=== PATIENT | male | born 1975 | race American Indian/Alaskan Native ===

== ENCOUNTER 2022-02-04 05:13 | Emergency (ER) | payer MEDICAID ==
[2022-02-04] MEDS ORDERED: ALUM-MAG HYDROXIDE-SIMETHICONE 200-200-20MG/5ML ORAL LIQD 30 ML PO ONE (08:48)
[2022-02-04] MEDS ORDERED: FAMOTIDINE 20 MG TAB PO ONE (08:48)
[2022-02-04] MEDS ORDERED: LIDOCAINE VISCOUS 2% 15 ML ORAL LIQD PO ONE (08:48)
[2022-02-04 09:29] LABS: Hematocrit 48.9 % (35.5-45.6); Hemoglobin 16.1 gm/dl (11.8-15.2); Mean Corpuscular HGB Conc 33 % (32-34); Mean Corpuscular Volume 82 fl (84-94); Platelet Count 193 K/mm3 (140-440); Red Blood Count 5.93 M/mm3 (3.65-5.03); Red Cell Distribution Width 13.9 % (13.2-15.2)
[2022-02-04] MEDS ORDERED: PANTOPRAZOLE 40 MG INJ IV ONE (09:32)
[2022-02-04] MEDS ORDERED: SODIUM CHLORIDE 0.9% 1000 ML 1,000 ML IV ONE (09:32)
[2022-02-04 09:53] LABS: Alanine Aminotransferase 15 units/L (7-56); Albumin 4.3 g/dL (3.9-5); Blood Urea Nitrogen 12 mg/dL (9-20); Calcium 9.6 mg/dL (8.4-10.2); Hemolysis Index 4
[2022-02-04 09:57] LABS: Calcium Oxalate Crystals,Urine FEW
[2022-02-04 09:58] LABS: Bacteria,Urine 1+ /HPF (Negative); Mucus,Urine FEW /HPF
[2022-02-04 10:02] LABS: Color,Urine Yellow (Yellow)
[2022-02-04 10:03] LABS: Bilirubin,Urine Negative (Negative); Blood,Urine Negative (Negative)
[2022-02-04 10:08] LABS: BUN/Creatinine Ratio 17
[2022-02-04] MEDS ORDERED: cefTRIAXone/NS 1 GM/50 ML 1 GM/50 ML BAG IV ONE (10:16)
[2022-02-04] MEDS ORDERED: INSULIN REGULAR, HUMAN 100 UNITS/1 ML IV ONE (10:16)
--- NOTE | 2022-02-04 10:45 | Emergency Department Report ---
ED Abdominal Pain HPI - General Chief Complaint: Abdominal Pain Stated Complaint: CHEST AND STOMACH PAIN PUI?: No Time Seen by Provider: 02/04/22 07:58 Source: patient Mode of arrival: Ambulatory Limitations: No Limitations - History of Present Illness Initial Comments: Patient is a 46-year-old male that comes to the emergency room with epigastric pain off and on for 2 months. He is diabetic and on insulin and metformin. He states that the pain is worse when he eats. And he experiences some fullness. He denies any nausea vomiting or diarrhea. He does endorse intermittent constipation. Patient is ambulatory, not ill nontoxic on arrival to ER. MD Complaint: abdominal pain -: Gradual, week(s) Location: epigastric Radiation: none Severity: mild Severity scale (0 -10): 4 Quality: cramping Consistency: intermittent Improves With: nothing Worsens With: eating - Related Data Previous Rx's Medication Instructions Recorded Last Taken Type Pantoprazole [Protonix] 40 mg PO QDAY #30 tablet 02/04/22 Unknown Rx Sulfamethoxazole/Trimethoprim 1 each PO BID #10 tablet 02/04/22 Unknown Rx [Bactrim DS TAB] Allergies Allergy/AdvReac Type Severity Reaction Status Date / Time No Known Allergies Allergy Verified 02/04/22 05:44 ED Review of Systems ROS: Stated complaint: CHEST AND STOMACH PAIN Other details as noted in HPI Comment: All other systems reviewed and negative ED Past Medical Hx - Past Medical History Previous Medical History?: Yes Hx Diabetes: Yes - Surgical History Past Surgical History?: Yes - Family History Family history: no significant - Social History Smoking Status: Never Smoker Substance Use Type: None - Medications Home Medications: Home Medications Medication Instructions Recorded Confirmed Last Taken Type Pantoprazole [Protonix] 40 mg PO QDAY #30 tablet 02/04/22 Unknown Rx Sulfamethoxazole/Trimethoprim 1 each PO BID #10 tablet 02/04/22 Unknown Rx [Bactrim DS TAB] ED Physical Exam - General Limitations: No Limitations General appearance: alert, in no apparent distress - Head Head exam: Present: atraumatic, normocephalic - Eye Eye exam: Present: normal appearance - ENT ENT exam: Present: mucous membranes moist - Neck Neck exam: Present: normal inspection - Respiratory Respiratory exam: Present: normal lung sounds bilaterally. Absent: respiratory distress - Cardiovascular Cardiovascular Exam: Present: regular rate, normal rhythm. Absent: systolic murmur, diastolic murmur, rubs, gallop - GI/Abdominal GI/Abdominal exam: Present: soft, tenderness (Over the epigastrium) - Rectal Rectal exam: Present: deferred - Extremities Exam Extremities exam: Present: normal inspection - Back Exam Back exam: Present: normal inspection - Neurological Exam Neurological exam: Present: alert, oriented X3 - Psychiatric Psychiatric exam: Present: normal affect, normal mood - Skin Skin exam: Present: warm, dry, intact, normal color. Absent: rash ED Course Vital Signs 02/04/22 02/04/22 05:34 13:47 Temperature 98.3 F 97.8 F Pulse Rate 88 78 Respiratory 18 16 Rate Blood Pressure 142/78 Blood Pressure 153/88 [Left] O2 Sat by Pulse 100 100 Oximetry ED Medical Decision Making - Lab Data Result diagrams: 02/04/22 08:51 02/04/22 08:51 - Medical Decision Making Vital Signs 02/04/22 05:34 Temperature 98.3 F Pulse Rate 88 Respiratory 18 Rate Blood Pressure 142/78 O2 Sat by Pulse 100 Oximetry Lab Results 02/04/22 02/04/22 02/04/22 Range/Units 08:51 08:51 09:12 WBC 5.6 (4.5-11.0) K/mm3 RBC 5.93 H (3.65-5.03) M/mm3 Hgb 16.1 H (11.8-15.2) gm/dl Hct 48.9 H (35.5-45.6) % MCV 82 L (84-94) fl MCH 27 L (28-32) pg MCHC 33 (32-34) % RDW 13.9 (13.2-15.2) % Plt Count 193 (140-440) K/mm3 Sodium 136 L (137-145) mmol/L Potassium 4.2 (3.6-5.0) mmol/L Chloride 99.5 (98-107) mmol/L Carbon Dioxide 24 (22-30) mmol/L Anion Gap 17 mmol/L BUN 12 (9-20) mg/dL Creatinine 0.7 L (0.8-1.3) mg/dL Estimated GFR > 60 ml/min BUN/Creatinine Ratio 17 % Glucose 356 H (75-100) mg/dL Ketones Quantitative Negative (Negative) Calcium 9.6 (8.4-10.2) mg/dL Total Bilirubin 1.40 H (0.1-1.2) mg/dL AST 12 (5-40) units/L ALT 15 (7-56) units/L Alkaline Phosphatase 80 (35-129) units/L Total Protein 7.0 (6.3-8.2) g/dL Albumin 4.3 (3.9-5) g/dL Albumin/Globulin Ratio 1.6 % Lipase 20 (13-60) units/L Urine Color Yellow (Yellow) Urine Turbidity Clear (Clear) Urine pH 5.0 (5.0-7.0) Ur Specific [place] 1.030 (1.003-1.030) Urine Protein 30 mg/dl (Negative) mg/dL Urine Glucose (UA) Negative (Negative) mg/dL Urine Ketones 3+ (Negative) mg/dL Urine Blood Negative (Negative) Urine Nitrite Negative (Negative) Ur Reducing Substances Not Reportable Urine Bilirubin Negative (Negative) Urine Ictotest Not Reportable Urine Urobilinogen 0.0 (<2.0) mg/dL Ur Leukocyte Esterase Negative (Negative) Urine WBC (Auto) 7.0 H (0.0-6.0) /HPF Urine RBC (Auto) 28.0 (0.0-6.0) /HPF U Epithel Cells (Auto) 4.0 (0-13.0) /HPF Urine Bacteria (Auto) 1+ (Negative) /HPF Calcium Oxalate Crystal Few Urine Mucus Few /HPF Labs noted. Patient given a liter of normal saline and IV Protonix. He was also given a GI cocktail and he did get some relief. Blood sugar noted to be elevated so patient again got a liter of saline, that is a total of 1 L in the ER. He was given IV insulin. I am waiting for nurses to repeat his blood glucose prior to discharge. Current time is 1300. UA noted. Patient given a gram of Rocephin IM. Patient did not have any polyuria polydipsia or polyphagia. He is taking his metformin and insulin as prescribed. T bili noted to be increased. However his right upper quadrant exam is unremarkable. He has no tenderness over the right upper quadrant. His tenderness is purely epigastric. His lipase is normal. His LFTs are normal. Once blood glucose is less than 200 patient being discharged home with discharge plan of care including diet, activity, medications and follow-up. I will send him to GI for endoscopy and evaluation. He will also need to see his primary care doctor. Patient verbalizes understanding of plan of care - Differential Diagnosis Rule out cholecystitis, pancreatitis, GERD, ulcer disease Critical care attestation.: If time is entered above; I have spent that time in minutes in the direct care of this critically ill patient, excluding procedure time. ED Disposition Clinical Impression: Epigastric pain, Hyperglycemia, unspecified, History of diabetes mellitus Disposition: HOME / SELF CARE / HOMELESS Is pt being admited?: Yes Does the pt Need Aspirin: Yes Condition: Stable Instructions: Abdominal Pain, Adult Additional Instructions: Stay well-hydrated with water Medications as ordered today Follow-up with PCP regarding her diabetes and urinary tract infection. Follow-up with GI doctor given your epigastric pain. Have given you referrals below. Diabetic diet Prescriptions: Sulfamethoxazole/Trimethoprim [Bactrim DS TAB] 1 each PO BID #10 tablet Pantoprazole [Protonix] 40 mg PO QDAY #30 tablet Referrals: JERI GATICA MD [Primary Care Provider] - 3-5 Days LEX WEATHERS MD [Staff Physician] - 3-5 Days Forms: Work/School Release Form(ED) Time of Disposition: 12:58
[2022-02-04 13:48] VITALS: BP 153/88
== END 2022-02-04 13:57 | disposition home or self-care (01) ==
LOC: ED 05:13
DX: R10.13 Epigastric pain (principal); E11.65 Type 2 diabetes mellitus with hyperglycemia
CPT/HCPCS: 36415; 80053; 81001; 82010; 82962; 83690; 85027; 96361; 96365; 96375; 99283; C9113; J0696; J7030; Q9967; J1815